=== PATIENT | female | born 1960 | race African-American/Black ===

== ENCOUNTER 2020-08-23 21:39 | Day surgery (SDCO) | payer MEDICARE ==
[~2020-08-23] VITALS: Ht 170.2 cm; Wt 68.2 kg
[2020-08-23 22:36] LABS: BASOPHIL 0.6 % (0-2); EOSINOPHIL 5.3 % (0-5); HCT 36.2 % (37.0-47.0); HGB 12.1 g/dl (12.5-16.0); LYMPHOCYTE 41.4 % (15-48); MCH 28.7 pg (25.0-31.0); MCHC 33.4 g/dL (32.0-36.0); MCV 85.8 fL (78.0-100.0); MONOCYTE 6.3 % (0-12); MPV 9.4 fL (6.0-9.5); NRBC 0; PLT 299 K/uL (150-400); RBC 4.22 M/uL (4.20-5.40); WBC 9.5 K/uL (4.0-10.5)
[2020-08-23 22:40] LABS: INR 1.05 (0.9-1.2); PROTHROMBIN TIME 13.1 SECONDS (11.8-13.4); PTT 28.2 SECONDS (24.4-34.7)
[2020-08-23 22:45] LABS: ALBUMIN 3.7 g/dL (3.4-5.0); BILIRUBIN - TOTAL 0.4 mg/dL (0.2-1.0); BUN/CREAT RATIO (CALC) 27.8 RATIO; CREATININE 0.79 mg/dL (0.51-0.95); GLOBULIN (CALCULATION) 3.8 g/dL; POTASSIUM 3.5 mmol/L (3.5-5.1); TOTAL PROTEIN 7.5 g/dL (6.4-8.2)
[2020-08-24] MEDS ORDERED: DICLOFENAC SODI75 MG PO (02:00)
[2020-08-24] MEDS ORDERED: OYSTER SHELL 51 EACH PO (02:00)
[2020-08-24] MEDS ORDERED: ATORVASTATIN CA10 MG PO (02:01)
[2020-08-24] MEDS ORDERED: IBUPROFEN800 M1 PO (02:01)
[2020-08-24] MEDS ORDERED: PANTOPRAZOLE SO40 MG PO (02:02)
[2020-08-24] MEDS ORDERED: CYCLOBENZAPRINE10 MG PO (02:02)
[2020-08-24] MEDS ORDERED: ROBAXIN750 MG PO (02:02)
[2020-08-24] MEDS ORDERED: EUTHYROX112 MCG PO (02:03)
[2020-08-24] MEDS ORDERED: EQ STOOL SOFTE1 EACH PO (02:05)
[2020-08-24 05:48] LABS: HCT 33.7 % (37.0-47.0); HGB 11.2 g/dl (12.5-16.0); MCH 28.3 pg (25.0-31.0); MCHC 33.2 g/dL (32.0-36.0); MCV 85.1 fL (78.0-100.0); MPV 9.3 fL (6.0-9.5); RBC 3.96 M/uL (4.20-5.40); RDW 13.7 % (11.5-14.0); WBC 8.4 K/uL (4.0-10.5)
[2020-08-24 06:50] LABS: BUN/CREAT RATIO (CALC) 24.1 RATIO; CREATININE 0.79 mg/dL (0.51-0.95); FT4 (FREE T4) 1.4 ng/dL (0.76-1.46); MAGNESIUM 1.7 mg/dL (1.8-2.4); PHOSPHORUS 3.1 mg/dL (2.6-4.7); POTASSIUM 3.5 mmol/L (3.5-5.1)
--- NOTE | 2020-08-24 17:10 | NUR ---
08/24/20 Ms. Kelly lives alone. She was independent in the home and comunity prior to admission. Ms. Kelly had been going to [facility] therapy due to a bulging disc in her neck and back. She reports to have been dismissed from the practice because she missed 3 appointments. Ms. Kelly plans to go back to her PCP for re-assessment and a new referral for Therapy if recommended.
[2020-08-25 05:51] LABS: BASOPHIL 0.4 % (0-2); EOSINOPHIL 4.7 % (0-5); HCT 35.1 % (37.0-47.0); HGB 11.8 g/dl (12.5-16.0); LYMPHOCYTE 43.8 % (15-48); MCH 28.3 pg (25.0-31.0); MCHC 33.6 g/dL (32.0-36.0); MCV 84.2 fL (78.0-100.0); MONOCYTE 7.4 % (0-12); MPV 9.2 fL (6.0-9.5); NEUTROPHIL 43.3 % (41-80); NRBC 0; PLT 250 K/uL (150-400); RBC 4.17 M/uL (4.20-5.40); RDW 13.7 % (11.5-14.0); WBC 8.1 K/uL (4.0-10.5)
[2020-08-25 06:13] LABS: BUN/CREAT RATIO (CALC) 22.2 RATIO; CREATININE 0.72 mg/dL (0.51-0.95); POTASSIUM 3.9 mmol/L (3.5-5.1)
== END 2020-08-25 09:26 | disposition home or self-care (01) ==
LOC: FER 21:39 → FMS 08-24 01:17
PROVIDERS: Emergency Medicine; Nurse Practitioner; ADMIT Internal Medicine
DX: M47.22 Other spondylosis with radiculopathy, cervical region (principal); M50.10 Cervical disc disorder with radiculopathy, unspecified cervical region; M48.02 Spinal stenosis, cervical region; R53.1 Weakness; R42 Dizziness and giddiness; E07.9 Disorder of thyroid, unspecified; E78.5 Hyperlipidemia, unspecified; F17.290 Nicotine dependence, other tobacco product, uncomplicated; M51.36 Other intervertebral disc degeneration, lumbar region; Z85.41 Personal history of malignant neoplasm of cervix uteri; Z72.820 Sleep deprivation; Z79.899 Other long term (current) drug therapy; Z88.0 Allergy status to penicillin; Z91.041 Radiographic dye allergy status; Z20.822 Contact with and (suspected) exposure to COVID-19
CPT/HCPCS: 36415; 70450; 70551; 71045; 72141; 80048; 80053; 80061; 82607; 83735; 84100; 84439; 84443; 84484; 85025; 85610; 85730; 93005; 93880; 94010; G0378; J1650; J1885; J2800; J3410; J7050; U0002

== ENCOUNTER 2020-09-02 20:33 | Emergency (ER) | payer MEDICARE ==
[~2020-09-02 20:33] MED LIST: ATORVASTATIN CA10 MG PO; CYCLOBENZAPRINE10 MG PO; DICLOFENAC SODI75 MG PO; EQ STOOL SOFTE1 EACH PO; EUTHYROX112 MCG PO; IBUPROFEN800 M1 PO; OYSTER SHELL 51 EACH PO; PANTOPRAZOLE SO40 MG PO; ROBAXIN750 MG PO
[2020-09-02 22:33] LABS: BASOPHIL 0.3 % (0-2); EOSINOPHIL 0.1 % (0-5); HCT 42.6 % (37.0-47.0); HGB 14.1 g/dl (12.5-16.0); LYMPHOCYTE 29.4 % (15-48); MCHC 33.1 g/dL (32.0-36.0); MCV 84.5 fL (78.0-100.0); MONOCYTE 5.3 % (0-12); MPV 9.8 fL (6.0-9.5); NEUTROPHIL 64.1 % (41-80); NRBC 0; PLT 420 K/uL (150-400); RBC 5.04 M/uL (4.20-5.40); RDW 14.2 % (11.5-14.0); WBC 19.9 K/uL (4.0-10.5)
[2020-09-02 22:52] LABS: ALBUMIN 4.3 g/dL (3.4-5.0); BILIRUBIN - TOTAL 0.3 mg/dL (0.2-1.0); BUN/CREAT RATIO (CALC) 38.3 RATIO; CREATININE 0.81 mg/dL (0.51-0.95); GLOBULIN (CALCULATION) 3.8 g/dL; POTASSIUM 4.2 mmol/L (3.5-5.1); PRO-BNP 114 pg/mL (<125); TOTAL PROTEIN 8.1 g/dL (6.4-8.2)
[2020-09-02 22:58] LABS: BILIRUBIN NEGATIVE (NEGATIVE); BLOOD TRACE-LYSED Ery/uL (NEGATIVE); GLUCOSE (U) NORMAL (NORMAL); LEUKOCYTES 3+ Leu/uL (NEGATIVE); NITRITE NEGATIVE (NEGATIVE); PROTEIN NEGATIVE (NEGATIVE); UROBILINOGEN 0.2 mg/dL (0.2-1.0)
[2020-09-02 23:02] LABS: AMPHETAMINES NEGATIVE (NEGATIVE); BARBITURATES NEGATIVE (NEGATIVE); ECSTASY (MDMA) NEGATIVE (NEGATIVE); MARIJUANA (THC) POSITIVE (NEGATIVE); METHADONE NEGATIVE (NEGATIVE); OPIATES NEGATIVE (NEGATIVE); OXYCODONE NEGATIVE (NEGATIVE)
[2020-09-02 23:05] LABS: COLOR STRAW (YELLOW)
[2020-09-02 23:06] LABS: CLARITY SLIGHTLY HAZY (CLEAR)
[2020-09-02 23:07] LABS: URINARY WBC 20-50
[2020-09-02 23:08] LABS: BACTERIA 2+
[2020-09-03] MEDS ORDERED: BACTRIM DS TAB1 EACH PO (00:40)
== END 2020-09-03 01:01 | disposition home or self-care (01) ==
LOC: FER 20:33
PROVIDERS: Internal Medicine
DX: I47.1 Supraventricular tachycardia (principal); N39.0 Urinary tract infection, site not specified; E05.90 Thyrotoxicosis, unspecified without thyrotoxic crisis or storm; F17.290 Nicotine dependence, other tobacco product, uncomplicated; Z86.73 Personal history of transient ischemic attack (TIA), and cerebral infarction without residual deficits; Z88.0 Allergy status to penicillin
CPT/HCPCS: 36415; 71045; 80053; 80305; 81001; 83880; 84443; 84484; 85025; 93005; J0153; J7030